=== PATIENT | female | born 1945 | race Caucasian/White ===

== ENCOUNTER 2017-01-24 10:51 | Day surgery (SDC) | payer MEDICARE ==
[~2017-01-24] VITALS: Ht 172.7 cm; Wt 73.0 kg
[~2017-01-24 10:51] MED LIST: ASPIRIN LOW DOS81 M1 PO; CEPHALEXIN500 MG OR; GARLIC10 MG PO; LIPITOR40 M1 PO; LORTAB 5 OR; METOPROL TAR25 M1 PO
[2017-01-24 15:14] VITALS: BP 119/56
[2017-01-24] MEDS ORDERED: BACTRIM DS1 TAB PO (15:28)
[2017-01-24] MEDS ORDERED: NORCO1 TA2 PO (15:29)
== END 2017-01-24 15:45 | disposition home or self-care (01) ==
LOC: ORM 10:51
PROVIDERS: ATTEND Urology
PROC: 3E1K88X Irrigation of Genitourinary Tract using Irrigating Substance, Via Natural or Artificial Opening Endoscopic, Diagnostic (ICD-10-PCS; principal; 2017-01-24)
PROC: 0TSD0ZZ Reposition Urethra, Open Approach (ICD-10-PCS; 2017-01-24)
DX: N39.3 Stress incontinence (female) (male) (principal); N30.91 Cystitis, unspecified with hematuria; R39.89 Other symptoms and signs involving the genitourinary system; R39.15 Urgency of urination; I10 Essential (primary) hypertension; E78.5 Hyperlipidemia, unspecified; F17.210 Nicotine dependence, cigarettes, uncomplicated; G51.0 Bell's palsy; K21.9 Gastro-esophageal reflux disease without esophagitis; Z87.440 Personal history of urinary (tract) infections; Z88.1 Allergy status to other antibiotic agents
CPT/HCPCS: C1771

== ENCOUNTER 2017-08-16 06:10 | Day surgery (SDC) | payer MEDICARE ==
[~2017-08-16 06:10] MED LIST changes: +ADVIL200 MG PO; +BACTRIM DS1 TAB PO; +ECK ANTACID1 CHW PO; +FAMOTIDINE20 M3 PO; +MAGNESIUM250 M1 PO; +NORCO1 TA2 PO
[2017-08-16 09:13] VITALS: BP 155/71
== END 2017-08-16 09:35 | disposition home or self-care (01) ==
LOC: ENDO 06:10
PROVIDERS: ATTEND Internal Medicine Gastroenterology
PROC: 0DBN8ZX Excision of Sigmoid Colon, Via Natural or Artificial Opening Endoscopic, Diagnostic (ICD-10-PCS; principal; 2017-08-16)
PROC: 0DBL8ZX Excision of Transverse Colon, Via Natural or Artificial Opening Endoscopic, Diagnostic (ICD-10-PCS; 2017-08-16)
DX: K57.31 Diverticulosis of large intestine without perforation or abscess with bleeding (principal); D12.5 Benign neoplasm of sigmoid colon; K56.609 Unspecified intestinal obstruction, unspecified as to partial versus complete obstruction; Q43.9 Congenital malformation of intestine, unspecified; D12.3 Benign neoplasm of transverse colon; K64.4 Residual hemorrhoidal skin tags; K64.8 Other hemorrhoids; K21.9 Gastro-esophageal reflux disease without esophagitis; E78.00 Pure hypercholesterolemia, unspecified

== ENCOUNTER 2018-05-29 16:28 | Emergency (ER) | payer MEDICARE ==
[~2018-05-29] VITALS: Ht 172.7 cm; Wt 77.2 kg
[2018-05-29 17:24] LABS: HEMATOCRIT 35.3 % (37.0-47.0); HEMOGLOBIN 11.8 g/dl (12.0-16.0); IMMATURE GRANULOCYTES 0.3 % (0.0-5.0); MEAN CELL VOLUME 93.4 fL CALC (80.0-100.0); MEAN CORPUSCULAR HGB 31.2 pG CALC (26.0-32.0); MEAN CORPUSCULAR HGB CONC 33.4 g/L CALC (32.0-36.0); NEUT# 4.72 thou/uL (2.00-7.15); RED BLOOD COUNT 3.78 mill/uL (4.20-5.60); RED CELL DISTRI WIDTH 12.1 % (11.5-15.5); URINE BILIRUBIN - DIPSTICK NEGATIVE (NEGATIVE); URINE BLOOD DIPSTICK MODERATE (NEGATIVE); URINE GLUCOSE - DIPSTICK NEGATIVE (NEGATIVE); URINE KETONE TRACE mg/dL (NEGATIVE); URINE NITRITE - DIPSTICK NEGATIVE (Negative); URINE PH 5.5 (4.5-8.0); URINE PROTEIN - DIPSTICK TRACE mg/dL (NEG-TRACE); URINE SPECIFIC GRAVITY >=1.030
[2018-05-29 17:26] LABS: URINE LEUK ESTERASE MODERATE (NEGATIVE)
[2018-05-29 17:27] LABS: URINE COLOR DK. YELLOW
[2018-05-29 17:36] LABS: URINE BACTERIA FEW hpf; URINE SQUAMOUS EPITHELIAL CELL FEW EPI/hpf (0-FEW)
[2018-05-29 17:37] LABS: ALBUMIN 3.6 g/dL (3.2-5.0); ALKALINE PHOSPHATASE 74 u/l (38-126); ANION GAP 14 (6-22 (CALC)); BILIRUBIN, TOTAL 0.5 mg/dL (0.0-1.4); BUN 12 mg/dL (8-23); BUN/CREATININE RATIO 16 (12-20 (CALC)); CARBON DIOXIDE 25 mmol/l (22-30); CHLORIDE 101 mmol/l (95-108); CREATININE 0.8 mg/dL (0.5-1.0); GFR > 60 ML/MIN (>=60 (CALC)); GFR FOR AFR.AMER. > 60 ML/MIN (>=60 (CALC)); POTASSIUM 3.8 mmol/l (3.5-5.1); SGOT/AST 29 u/l (9-36); SODIUM 136 mmol/l (137-146); TOTAL PROTEIN 6.7 g/dL (6.3-8.2); URINE MUCUS FEW hpf (NONE-FEW)
[2018-05-29] MEDS ORDERED: METRONIDAZOL500 MG PO (20:36)
[2018-05-29] MEDS ORDERED: AUGMENTIN875TAB PO (20:36)
[2018-05-29 21:00] VITALS: BP 140/60
== END 2018-05-29 21:00 | disposition home or self-care (01) ==
LOC: ED 16:28
PROVIDERS: Emergency Medicine
DX: K52.9 Noninfective gastroenteritis and colitis, unspecified (principal); R10.30 Lower abdominal pain, unspecified; K57.30 Diverticulosis of large intestine without perforation or abscess without bleeding; R19.7 Diarrhea, unspecified; R11.10 Vomiting, unspecified; Z91.19 Patient's noncompliance with other medical treatment and regimen
CPT/HCPCS: Q9967

== ENCOUNTER 2018-06-05 12:07 | Observation (INO) | payer MEDICARE ==
[~2018-06-05] VITALS: Ht 172.7 cm; Wt 77.7 kg
[~2018-06-05 12:07] MED LIST changes: +AUGMENTIN875TAB PO; +METRONIDAZOL500 MG PO
--- NOTE | 2018-06-05 12:13 | NUR ---
AMBULATORY TO ER ROOM 10, TOBED
[2018-06-05 12:53] LABS: HEMATOCRIT 37.4 % (37.0-47.0); HEMOGLOBIN 12.5 g/dl (12.0-16.0); IMMATURE GRANULOCYTES 0.3 % (0.0-5.0); MEAN CELL VOLUME 92.8 fL CALC (80.0-100.0); MEAN CORPUSCULAR HGB CONC 33.4 g/L CALC (32.0-36.0); NEUT# 5.04 thou/uL (2.00-7.15); RED BLOOD COUNT 4.03 mill/uL (4.20-5.60); RED CELL DISTRI WIDTH 12.3 % (11.5-15.5)
[2018-06-05 13:14] LABS: ALBUMIN 3.5 g/dL (3.2-5.0); ALKALINE PHOSPHATASE 63 u/l (38-126); ANION GAP 15 (6-22 (CALC)); BILIRUBIN, TOTAL 0.4 mg/dL (0.0-1.4); BUN 7 mg/dL (8-23); BUN/CREATININE RATIO 11 (12-20 (CALC)); CARBON DIOXIDE 25 mmol/l (22-30); CHLORIDE 102 mmol/l (95-108); CREATININE 0.7 mg/dL (0.5-1.0); GFR > 60 ML/MIN (>=60 (CALC)); GFR FOR AFR.AMER. > 60 ML/MIN (>=60 (CALC)); LIPASE 91 u/l (23-300); POTASSIUM 3.7 mmol/l (3.5-5.1); SODIUM 138 mmol/l (137-146); TOTAL PROTEIN 6.6 g/dL (6.3-8.2)
[2018-06-05 13:23] LABS: SGOT/AST 52 u/l (9-36)
--- NOTE | 2018-06-05 14:00 | NUR ---
PATIENT SENT TO BATHROOM FOR URINE SAMPLE.
--- NOTE | 2018-06-05 14:13 | NUR ---
UNABLE TO OBTAIN CLEAN URINE SAMPLE. CONTAMINATED WITH STOOL.
--- NOTE | 2018-06-05 14:58 | NUR ---
inquires on admission status - utilizing MCG/INDICIA guidelines, account underwriter advised OBSERVATIONAL status.
[2018-06-05] MEDS ORDERED: METRONIDAZOL500 MG PO (15:02)
--- NOTE | 2018-06-05 15:10 | NUR ---
IV ANTIBIOTIC STARTED AT THIS TIME, BLOOD CULTURES PREVIOUSLY OBTAINED.
--- NOTE | 2018-06-05 16:15 | NUR ---
Pt. moved to rm #3 awaiting MS admisssion. This nurse assumed care of pt. Pt. lying in bed awake and alert. PERRLA. Speech clear and appropriate. Skin w/p/d. No distress noted.
--- NOTE | 2018-06-05 16:21 | NUR ---
REPORT CALLED TO CARMINA SHEPARD.
--- NOTE | 2018-06-05 16:35 | NUR ---
PATIENT TRANSPORTED TO [facility] VIA WHEELCHAIR. CARE RELINQUISHED TO JAKE SHEPARD.
--- NOTE | 2018-06-05 16:36 | NUR ---
PT TRANSPORTED TO [facility] VIA HEELCHAIR ACCOMPIANED BY JAKE WEINSTEIN. PT AMBULATED FROM WC TO BED W/ STEADY GAIT. VS DONE. ASSESSMENT COMPLETE. PT A/O X3. SPEECH IS CLAER. PERRLA. RESP EVEN AND UNLABORED. LUNG SOUNDS CLEAR. BOWEL SOUNDS ACTIVE X4. PT C/O SOME ABDOMINAL TENDERNESS TO LLQ. NO N/V AT THIS TIME. STRONG RADIAL AND PEDAL PULSES. #20 RAC IV REMOVED BY DIRECTOR OF ASSISTED LIVING DUE TO LEAKING. #22 RH NEW IV START @1725, SL. FLUSHED AND PATENT. SITE APPEARS HEALTHY. SKIN INTACT. PT DENIES ANY FURTHER NEEDS, BUT IS REQUESTING FOOD. DISCUSSED W/ PT WILL BE IN TO SEE HER AND DIET WILL BE ADJUSTED PER MD ORDER. PT STATES UNDERSTANDING. POC DISCUSSED. SAFETY PRECAUTIONS IN PLACE. CALL LIGHT IN REACH. WILL CONTINUE TO MONITOR
[2018-06-05 16:39] VITALS: BP 126/45
--- NOTE | 2018-06-05 17:53 | NUR ---
DR. JENNINGS IN TO SEE PT
[2018-06-05 18:14] VITALS: BP 110/48
[2018-06-05 19:43] VITALS: BP 120/34
--- NOTE | 2018-06-05 20:16 | NUR ---
PT BP 120/34, HR 83. PT IS VERY RELAXED IN BED STATING SHE IS "SLEEPY." PHYSICIAN NOTIFIED, PT ASSESSED, BP UP TO 120/50, HR 86. WILL CONTINUE TO MONITOR. LUNG SOUNDS ARE DIM LOWER QUAD/CLEAR THROUGHOUT, ABD SOFT NON-TENDER, DENIES N/V, REPORTS MULTIPLE BOUTS OF DIAHREA TODAY. PT LOC X3. LR RUNNING AT 75/SITE APPEARS HEALTHY
[2018-06-05 20:30] VITALS: BP 120/50
[2018-06-05 22:38] LABS: URINE BILIRUBIN - DIPSTICK NEGATIVE (NEGATIVE); URINE BLOOD DIPSTICK LARGE (NEGATIVE); URINE COLOR YELLOW; URINE GLUCOSE - DIPSTICK NEGATIVE (NEGATIVE); URINE KETONE NEGATIVE (NEGATIVE); URINE LEUK ESTERASE LARGE (NEGATIVE); URINE NITRITE - DIPSTICK NEGATIVE (Negative); URINE PROTEIN - DIPSTICK 100 mg/dL (NEG-TRACE); URINE UROBILINOGEN - DIPSTICK 0.2 E.U./dL (0.2)
[2018-06-05 22:42] LABS: URINE WBC 50-100 WBC/hpf (0-5)
[2018-06-05 23:35] VITALS: BP 117/45
--- NOTE | 2018-06-05 23:40 | NUR ---
PT SLEEPING I ENTERED THE ROOM. DENIES ANY DISTRESS/SOB/N/V OR PAIN. PT MEDICATED ORDERS PROVIDE. V/S ASSESSED AT THIS TIME. WILL CONTINUE TO MONITOR. CALL LIGHT AT BEDSIDE, PT ENCOURAGED TO CALL IF ANY NEEDS ARISE.
--- NOTE | 2018-06-06 01:04 | NUR ---
PT ASSISTED TO RESTROOM AND BACK TO BED. PT C/O GENERALIZED DISCOMFORT DUE TO STRANGE BED, ASSISTED PT BACK TO BED AND POSITIONING FOR COMFORT, REFUSED SOCKS, AC SET FOR COMFORT. IV ANTIBIOTIC THERAPY ADMINISTERED AT THIS TIME. CALL LIGHT IS AT SIDE AND PT ENCOURAGED TO USE NEEDS ARISE.
--- NOTE | 2018-06-06 04:35 | NUR ---
PT WAS SLEEPING UPON ENTERING ROOM. NO S/S OF DISTRESS NOTED, CALL LIGHT AT BEDSIDE.
[2018-06-06 04:46] VITALS: BP 121/55
[2018-06-06 05:47] LABS: IMMATURE GRANULOCYTES 0.5 % (0.0-5.0); MEAN CELL VOLUME 93.7 fL CALC (80.0-100.0); MEAN CORPUSCULAR HGB 31.3 pG CALC (26.0-32.0); MEAN CORPUSCULAR HGB CONC 33.4 g/L CALC (32.0-36.0); NEUT# 2.3 thou/uL (2.00-7.15); RED BLOOD COUNT 3.19 mill/uL (4.20-5.60); RED CELL DISTRI WIDTH 12.5 % (11.5-15.5)
[2018-06-06 05:50] LABS: HEMATOCRIT 29.9 % (37.0-47.0)
[2018-06-06 06:02] LABS: ALKALINE PHOSPHATASE 44 u/l (38-126); ANION GAP 10 (6-22 (CALC)); BILIRUBIN, TOTAL 0.2 mg/dL (0.0-1.4); BUN 3 mg/dL (8-23); BUN/CREATININE RATIO 4 (12-20 (CALC)); CARBON DIOXIDE 23 mmol/l (22-30); CHLORIDE 108 mmol/l (95-108); CREATININE 0.6 mg/dL (0.5-1.0); GFR > 60 ML/MIN (>=60 (CALC)); GFR FOR AFR.AMER. > 60 ML/MIN (>=60 (CALC)); MAGNESIUM 1.7 mg/dL (1.6-2.3); POTASSIUM 3.5 mmol/l (3.5-5.1); SGOT/AST 43 u/l (9-36); SODIUM 137 mmol/l (137-146)
[2018-06-06 06:15] LABS: ALBUMIN 2.2 g/dL (3.2-5.0); TOTAL PROTEIN 4.5 g/dL (6.3-8.2)
--- NOTE | 2018-06-06 07:30 | NUR ---
PT RESTING IN BED, NO SIGNS OF DISTRESS NOTED, RESP EVEN AND UNLABORED. DISCUSSED POC, PT NPO REQUESTS ICE CHIPS. VSS, ASSESSMENT COMPLETED AT THIS TIME. IVF INFUSING. CALL LIGHT IN REACH,CONTINUE TO MONITOR.
[2018-06-06 07:31] VITALS: BP 128/70
[2018-06-06 12:07] VITALS: BP 134/62
--- NOTE | 2018-06-06 12:55 | NUR ---
INCREASED DIET TO CLEAR LIQ, DIETARY NOTIFIED AND LUNCH TRAY PROVIDED.
--- NOTE | 2018-06-06 13:45 | NUR ---
IV SABA JUÁREZ PT STATES SHE TOLERATED HER LUNCH TRAY AND WOULD HAVE EATEN 7 BOWLS OF BROTH. CALL LIGHT IN REACH,CONTINUE TO MONITOR.
[2018-06-06 15:20] VITALS: BP 120/61
[2018-06-06 19:35] VITALS: BP 123/69
--- NOTE | 2018-06-06 20:10 | NUR ---
REPORT RECIEVED FROM OFFGOING NURSE. PT RESTING IN BED WITH EYES CLOSED.NO PAIN OR DISTRESS NOTED.POC DISCUSSED. PT VOICED UNDERSTANDING. CALL LIGHT IN REACH. BED IN LOW POSTION. WILL MONITOR.
--- NOTE | 2018-06-06 23:49 | NUR ---
pt resting in bed with eyes closed. no pain or distress noted. will monitor.
[2018-06-07 04:08] VITALS: BP 129/74
[2018-06-07 05:50] LABS: HEMATOCRIT 29.5 % (37.0-47.0); IMMATURE GRANULOCYTES 1.4 % (0.0-5.0); MEAN CELL VOLUME 93.1 fL CALC (80.0-100.0); MEAN CORPUSCULAR HGB 31.5 pG CALC (26.0-32.0); MEAN CORPUSCULAR HGB CONC 33.9 g/L CALC (32.0-36.0); NEUT# 2.26 thou/uL (2.00-7.15); RED BLOOD COUNT 3.17 mill/uL (4.20-5.60); RED CELL DISTRI WIDTH 12.5 % (11.5-15.5)
[2018-06-07 06:13] LABS: ALBUMIN 2.4 g/dL (3.2-5.0); ALKALINE PHOSPHATASE 47 u/l (38-126); ANION GAP 10 (6-22 (CALC)); BILIRUBIN, TOTAL 0.3 mg/dL (0.0-1.4); BUN 3 mg/dL (8-23); BUN/CREATININE RATIO 4 (12-20 (CALC)); CARBON DIOXIDE 27 mmol/l (22-30); CHLORIDE 106 mmol/l (95-108); CREATININE 0.7 mg/dL (0.5-1.0); GFR > 60 ML/MIN (>=60 (CALC)); GFR FOR AFR.AMER. > 60 ML/MIN (>=60 (CALC)); MAGNESIUM 1.8 mg/dL (1.6-2.3); POTASSIUM 3.6 mmol/l (3.5-5.1); SGOT/AST 55 u/l (9-36); SODIUM 139 mmol/l (137-146); TOTAL PROTEIN 4.7 g/dL (6.3-8.2)
--- NOTE | 2018-06-07 07:20 | NUR ---
REPORT RECIEVED FROM JAKE GIBSON; PT UP USING THE RESTROOM; INTRODUCE SELF TO PT; PT VOICED NO CONCERNS; WILL CONTINE TO MONITOR
[2018-06-07 08:40] VITALS: BP 120/50
--- NOTE | 2018-06-07 08:46 | NUR ---
PT A/O X4; PT SITTING UP IN BED WATCHING TV; IV INFUSING; SITE APPEARS HEALTHY; NON PRODUCTIVE COUGH NOTED; POC DISCUSSED; PT VOICED NO CONCERNS; CALL PIERRE IN REACH. WILL CONTINUE TO MONITOR.
[2018-06-07 10:07] VITALS: BP 117/56
--- NOTE | 2018-06-07 11:35 | NUR ---
PT SITTING UP EDGE OF BED EATING LUNCH; AT THIS TIME PT IS REFUSING LOVENOX AND PANTOPRAZOLE; STATED "I DONT LIKE TO TAKE MEDICATION" BENEFISTS EXPLAINED TO PT. DR JENNINGS IN ROOM AND EXPLAINED BOTH MEDS; PT AGREE TO TAKE MEDS; MEDICATED PER EMAR; PT VOICE NO OTHER CONCERNS
--- NOTE | 2018-06-07 14:59 | NUR ---
PT INDIPENDENT IN ROOM; TOOK A SHOWER; PT HAS NO PIAN; IVF RESTARTED, FLOWING WITH EASE, SITE APPEARS HELATHY; CALL PIERRE IN REACH.
[2018-06-07 15:45] VITALS: BP 124/46
--- NOTE | 2018-06-07 17:19 | NUR ---
PT SITTING UP EDGE OF BED WATCHING TV; RESP EVEN AND UNLABORED; IVF INFUSING WITHOUT DIFFICULTY; PT VOICED NO CONCERNS; REMAIN INDIPENDENT IN ROOM; CALL PIERRE IN REACH.
[2018-06-07 19:04] VITALS: BP 119/66
--- NOTE | 2018-06-08 00:18 | NUR ---
pt assisted to restroom. pt denies diarrhea. no c/o pain or distress. will continue to monitor.
[2018-06-08 04:03] VITALS: BP 108/65
[2018-06-08 05:56] LABS: ANION GAP 10 (6-22 (CALC)); CARBON DIOXIDE 27 mmol/l (22-30); CHLORIDE 106 mmol/l (95-108); CREATININE 0.7 mg/dL (0.5-1.0); GFR > 60 ML/MIN (>=60 (CALC)); GFR FOR AFR.AMER. > 60 ML/MIN (>=60 (CALC)); POTASSIUM 3.3 mmol/l (3.5-5.1); SODIUM 139 mmol/l (137-146)
[2018-06-08 06:11] LABS: BUN 2 mg/dL (8-23); BUN/CREATININE RATIO 3 (12-20 (CALC))
[2018-06-08 07:52] VITALS: BP 134/53
--- NOTE | 2018-06-08 07:52 | NUR ---
PT SITTING UP IN BED, PT STATES SHE FEELS MUCH BETTER. BM HAVE SLOWED DOWN NO DIARRHEA. PT HAD A BM THIS AM, SMALL FORMED. DISCUSSED POC, PT IN AGREEMENT. STATES SHE HAS BEEN TOLERATING HER DIET. VSS, ASSESSMENT COMPLETED. CALL LIGHT IN REACH,CONTINUE TO MONITOR.
[2018-06-08 09:10] VITALS: BP 134/53
--- NOTE | 2018-06-08 11:21 | NUR ---
MD TO SEE PT, DISCUSSED POC, PT TO HAVE DIET ADVANCED TO REGULAR DIET, IVF DC'D AT THIS TIME.
--- NOTE | 2018-06-08 12:54 | NUR ---
IV SL ZOSYN INFUSION COMPLETED. FOREIGN POLICY OFFICER NOTIFIED TO TAKE PT TO RADIOLOGY. CONTINUE TO MONITOR.
--- NOTE | 2018-06-08 13:03 | NUR ---
PT RETURNED FROM RADIOLOGY, VOICES NO NEEDS OR COMPLAINTS AT THIS TIME. CALL LIGHT IN REACH,CONTINUE TO MONITOR.
[2018-06-08] MEDS ORDERED: BACTRIM DS1 TAB PO (15:36)
--- NOTE | 2018-06-08 15:50 | NUR ---
DISCUSSED DISCHARGE INSTRUCTIONS PT VERBALIZED UNDERSTANDING. OFFICE NUMBER PROVIDED. PT TO GO TO [facility] TO LOCATE TECHNICIAN PRESCRIPTION. IV REMOVED FROM [facility] CATHETER INTACT. SIGNED DISCHARGE PAPERWORK, TO BEDSIDE TO TAKE PT HOME.
--- NOTE | 2018-06-08 15:59 | NUR ---
Discharge instructions given. Patient verbalizes understanding of same. Discharged in stable condition via Ambulatory to Home with spouse. All belongings sent with pt.
== END 2018-06-08 15:55 | disposition home or self-care (01) ==
LOC: ED 12:07 → ED-I 15:08 → MS2 15:09 → ED 15:09 → MS2 15:09
PROVIDERS: Family Medicine; ADMIT Internal Medicine Nephrology; ATTEND Internal Medicine Nephrology
DX: K57.32 Diverticulitis of large intestine without perforation or abscess without bleeding (principal); I10 Essential (primary) hypertension; E78.5 Hyperlipidemia, unspecified; F41.9 Anxiety disorder, unspecified; R74.8 Abnormal levels of other serum enzymes; Z87.891 Personal history of nicotine dependence
CPT/HCPCS: J1650; Q9967

== ENCOUNTER 2018-07-16 08:00 | Day surgery (SDC) | payer MEDICARE ==
[~2018-07-16] VITALS: Ht 170.2 cm; Wt 73.0 kg
[~2018-07-16 08:00] MED LIST changes: +HYDROCO/APAP1 TA9 PO
[2018-07-16 10:39] VITALS: BP 122/60
== END 2018-07-16 10:50 | disposition home or self-care (01) ==
LOC: ENDO 08:00 → ORM 09:15 → ENDO 10:50
PROVIDERS: ATTEND Surgery
PROC: 0DJD8ZZ Inspection of Lower Intestinal Tract, Via Natural or Artificial Opening Endoscopic (ICD-10-PCS; principal; 2018-07-16)
DX: K57.30 Diverticulosis of large intestine without perforation or abscess without bleeding (principal); K63.5 Polyp of colon; K63.89 Other specified diseases of intestine; Z86.010 Personal history of colon polyps; Z87.440 Personal history of urinary (tract) infections

== ENCOUNTER → 2018-08-01 | Outpatient (REF) | END | disposition home or self-care (01) | DRG 690 | LOC: LABSPEC 07:24 → LAB 07:24 | PROVIDERS: ATTEND Urology | DX: N39.0 Urinary tract infection, site not specified (principal) ==